=== PATIENT | female | born 1940 | race Caucasian/White ===

== ENCOUNTER 2023-10-10 11:17 | Emergency (ER) | payer MEDICARE ==
[~2023-10-10] VITALS: Ht 157.5 cm; Wt 73.6 kg
[~2023-10-10 11:17] MED LIST: CRANBERRY250 MG PO; DYAZIDE 25 MG-31 CAP PO; ELIQUIS 5MG PO; FLONASE NASAL S16 GM NS; MUCINEX1200 MG PO; PRILOSEC 20MG20 MG PO; PROAIR HFA0.09 MG/AC IH; SYNTHROID0.125 MG/T PO; VITAMIND3 5000 PO
[2023-10-10 11:30] VITALS: TEMP 98.3
[2023-10-10] MEDS ORDERED: VENTOLIN0.09 MG IH (13:02)
[2023-10-10 13:08] VITALS: BP 132/87; PULSE 92
== END 2023-10-10 13:10 | disposition home or self-care (01) ==
LOC: COL.ER 11:17
DX: J90 Pleural effusion, not elsewhere classified (principal)

== ENCOUNTER 2023-10-18 09:14 | Emergency (ER) | payer MEDICARE ==
[~2023-10-18] VITALS: Ht 157.5 cm; Wt 73.6 kg
[~2023-10-18 09:14] MED LIST changes: +VENTOLIN0.09 MG IH
[2023-10-18 09:29] VITALS: TEMP 97.8
[2023-10-18 12:28] VITALS: BP 140/96; PULSE 91
== END 2023-10-18 12:34 | disposition home or self-care (01) ==
LOC: COL.ER 09:14
DX: R06.02 Shortness of breath (principal)

== ENCOUNTER 2023-10-19 06:59 | Outpatient (CLI) | payer MEDICARE ==
[~2023-10-19] VITALS: Ht 154.9 cm; Wt 75.3 kg
[~2023-10-19 06:59] MED LIST changes: +LR 1,000 ML IV SCH
[2023-10-19 07:58] VITALS: BP 143/91; PULSE 89; TEMP 97.8
--- NOTE | 2023-10-19 08:01 | NUR ---
0714 Pt to bay 7 via wheel chair, breathing even and unlabored. Pt is alert and oriented, accompanied today by her daughter. Consent reviewed signed by patient. Call light in reach. Warm blanket provided.
[2023-10-19 09:20] VITALS: BP 732/81; PULSE 81; TEMP 98.6
[2023-10-19 09:35] VITALS: BP 128/78; PULSE 78
[2023-10-19 09:50] VITALS: BP 134/79; PULSE 78
--- NOTE | 2023-10-19 10:49 | NUR ---
[id number]: PT TO RECOVERY BAY 7 FROM [facility] SUITE S/P LEFT THORACENTESIS A&O, PLACED ON MONITOR, VSS ON RA RECEIVED REPORT AND ASSUMED CARE OF PT FROM STIVEN LAM FAMILY AT BEDSIDE PROVIDED FOOD/FLUIDS, TOLERATING WELL DRSG CDI PLAN FOR PT TO HAVE PLURAL CATH PLACED FOR AT HOME DRAINAGE WITH ASPIRA DEVICE - PT ED (LAVEGO/VIDEOS AND TRAINING CATH USED) PT HAS REMAINED A&O, NAD, VSS ON RA, TOLERATING PO, IS WITHOUT SIGNIFICANT COMPLAINT, WITH STEADY GAIT THRU OUT STAY NO IV. D/C INSTRUCTIONS, PRN FOLLOW UP REVIEWED AND HANDED TO PT. ALL QUESTIONS AND CONCERNS ADDRESSED TO PT SATISFACTION. TAKEN TO EXIT VIA W/C WITH ALL BELONGINGS AND PAPERWORK IN HAND, ASSISTED INTO PASSENGER SEAT OF POV. FAMILY TO DRIVE HOME.
[2023-10-19 11:30] VITALS: BP 133/89; PULSE 80
== END 2023-10-19 10:20 | disposition home or self-care (01) ==
LOC: SDCO 06:59
DX: J91.0 Malignant pleural effusion (principal)
CPT/HCPCS: 19804

== ENCOUNTER 2023-10-31 06:40 | Outpatient (CLI) | payer MEDICARE ==
[~2023-10-31] VITALS: Ht 154.9 cm; Wt 76.0 kg
--- NOTE | 2023-10-31 06:51 | NUR ---
PATIENT ADMITTED PER WHEELCHAIR TO BAY 8 AND IS ALERT AND ORIENTED X3. STATES SHE IS HERE TO HAVE HER LEFT LUNG DRAINED. ABLE TO STAND AND TRANSFER WITH STANDBY ASSIST. DYSPNEIC WITH EXERTION. RIGHT LUNGS WITH FEW SCATTERED CRACKLES THAT CLEAR WITH COUGHING. STATES DOES EXPECTORATE CLEAR PHELGM. BREATH SOUNDS ON THE LEFT ABSENT. LAB DRAWN ORDERED BY DR. HAMMOND. DAUGHTER IS WITH THE PATIENT.
[2023-10-31] MEDS ORDERED: B-12 500 MCG PO (07:10)
[2023-10-31] MEDS ORDERED: FOLIC ACID 40400 MCG PO (07:11)
[2023-10-31 07:15] LABS: HEMATOCRIT 43.8 % (37.0-47.0); HEMOGLOBIN 14.6 g/dl (12.5-16.0); MEAN CELL VOLUME 93 fl (80.0-100.0); MEAN CORPUSCULAR HEMOGLOBIN 31 pg (27-31); MEAN CORPUSCULAR HGB CONC 33 g/dl (33.0-37.0); MEAN PLATELET VOLUME 9.4 fl (7.4-10.4); PLATELET COUNT 345 K/mm3 (130-400); RED BLOOD COUNT 4.73 M/mm3 (4.10-5.30); REDCELL DISTRIBUTION WIDTH-CV 13.1 % (11.5-14.5)
[2023-10-31 07:47] LABS: ALBUMIN 3.2 gm/dL (3.4-4.8); BILIRUBIN,TOTAL 0.4 mg/dL (0.2-1.2); CALCIUM 9.7 mg/dL (8.4-10.2); CREATININE, serum 0.93 mg/dL (0.57-1.11); POTASSIUM 3.5 mmol/L (3.5-4.5); TOTAL PROTEIN 6.7 gm/dL (6.2-8.1)
[2023-10-31 08:44] LABS: EOSINOPHIL 1 % (0-4); LYMPHOCYTE 24 % (20.0-51.0); NEUTROPHILS 71 % (42.0-75.2); PLATELET ESTIMATE NORMAL (NORMAL)
[2023-10-31 08:45] VITALS: BP 118/89; PULSE 80; TEMP 97.3
[2023-10-31 09:00] VITALS: BP 125/80; PULSE 80
[2023-10-31 09:20] VITALS: BP 117/93; PULSE 81
--- NOTE | 2023-10-31 14:37 | NUR ---
[id number]: PT TO RECOVERY B[facility] FROM [facility] S/P L THORACENTESIS A&O, PLACED ON MONITOR, VSS ON 2L RECEIVED REPORT AND ASSUMED CARE OF PT FROM STIVEN PIERRE AT BEDSIDE PROVIDED FLUIDS, TOLERATING WELL DR CRUZ IN TO SPEAK WITH PT/FAMILY POST-PROCEDURE 0900 PT TITRATED TO RA, VSS 0905 XR AT BEDSIDE PT HAS REMAINED A&O, NAD, VSS ON RA, TOLERATING PO, IS WITHOUT SIGNIFICANT COMPLAINT, WITH STEADY GAIT THRU OUT STAY D/C INSTRUCTIONS, ANY FOLLOW UP REVIEWED AND HANDED TO PT. ALL QUESTIONS AND CONCERNS ADDRESSED TO PT SATISFACTION. TAKEN TO EXIT VIA W/C WITH ALL BELONGINGS AND PAPERWORK IN HAND, ASSISTED INTO PASSENGER SEAT OF POV. FAMILY TO DRIVE HOME.
== END 2023-10-31 09:15 | disposition home or self-care (01) ==
LOC: SDCO 06:40 → EDSTATUS 08:00 → SDCO 09:15
PROVIDERS: Internal Medicine
DX: J91.0 Malignant pleural effusion (principal); Z85.118 Personal history of other malignant neoplasm of bronchus and lung

== ENCOUNTER → 2023-11-14 | Outpatient (CLI) | payer MEDICARE ==
[~2023-11-14] VITALS: Ht 154.9 cm; Wt 75.2 kg
[~2023-11-14] MED LIST changes: +B-12 250 MCG PO; +B-12 500 MCG PO; +FOLIC ACID 40400 MCG PO; +KEYTRUDA25 MG/ML IV; -LR 1,000 ML IV SCH
[2023-11-14 09:13] VITALS: BP 120/76; PULSE 105; TEMP 97.7
[2023-11-14 10:10] VITALS: BP 127/88; PULSE 90
[2023-11-14 10:51] LABS: HEMATOCRIT 40.4 % (37.0-47.0); HEMOGLOBIN 13.5 g/dl (12.5-16.0); MEAN CELL VOLUME 91 fl (80.0-100.0); MEAN CORPUSCULAR HEMOGLOBIN 30 pg (27-31); MEAN CORPUSCULAR HGB CONC 33 g/dl (33.0-37.0); MEAN PLATELET VOLUME 9.8 fl (7.4-10.4); PLATELET COUNT 170 K/mm3 (130-400); RED BLOOD COUNT 4.46 M/mm3 (4.10-5.30); REDCELL DISTRIBUTION WIDTH-CV 12.3 % (11.5-14.5)
[2023-11-14 11:11] LABS: ALBUMIN 2.6 gm/dL (3.4-4.8); BILIRUBIN,TOTAL 0.4 mg/dL (0.2-1.2); CALCIUM 9.7 mg/dL (8.4-10.2); CREATININE, serum 0.84 mg/dL (0.57-1.11); POTASSIUM 3.7 mmol/L (3.5-4.5); TOTAL PROTEIN 6.5 gm/dL (6.2-8.1)
[2023-11-14 11:30] LABS: EOSINOPHIL 2 % (0-4); LYMPHOCYTE 28 % (20.0-51.0); NEUTROPHILS 56 % (42.0-75.2); PLATELET ESTIMATE NORMAL (NORMAL)
== END ==
LOC: COL.RAD 09:00
PROVIDERS: Internal Medicine
DX: C34.12 Malignant neoplasm of upper lobe, left bronchus or lung (principal); Z98.890 Other specified postprocedural states

== ENCOUNTER → 2023-12-11 | Outpatient (CLI) | payer MEDICARE ==
[~2023-12-11] VITALS: Ht 154.9 cm; Wt 77.0 kg
[2023-12-11 11:30] VITALS: BP 138/87; PULSE 91; TEMP 97.5
[2023-12-11 12:38] VITALS: BP 151/95; PULSE 86
== END ==
LOC: COL.RAD 12-10 11:14
DX: C34.12 Malignant neoplasm of upper lobe, left bronchus or lung (principal); J90 Pleural effusion, not elsewhere classified

== ENCOUNTER 2024-01-11 18:36 | Observation (INO) | payer MEDICARE ==
[~2024-01-11] VITALS: Ht 157.5 cm; Wt 75.0 kg
[2024-01-11] MEDS ORDERED: Morphine 4 MG/ML VIAL IV ONE (19:00)
[2024-01-11] MEDS ORDERED: NS 1,000 ML IV ONE (19:15)
[2024-01-11 19:22] LABS: MEAN CELL VOLUME 98 fl (80.0-100.0); MEAN CORPUSCULAR HGB CONC 33 g/dl (33.0-37.0); MEAN PLATELET VOLUME 9.3 fl (7.4-10.4); PLATELET COUNT 324 K/mm3 (130-400); RED BLOOD COUNT 3.09 M/mm3 (4.10-5.30); REDCELL DISTRIBUTION WIDTH-CV 17.9 % (11.5-14.5)
[2024-01-11 19:24] LABS: HEMATOCRIT 30.2 % (37.0-47.0); HEMOGLOBIN 9.9 g/dl (12.5-16.0); MEAN CORPUSCULAR HEMOGLOBIN 32 pg (27-31)
[2024-01-11 19:49] LABS: BILIRUBIN,TOTAL 0.7 mg/dL (0.2-1.2); CALCIUM 9.1 mg/dL (8.4-10.2); CREATININE, serum 0.76 mg/dL (0.57-1.11); POTASSIUM 3.9 mEq/L (3.5-4.5); TOTAL PROTEIN 6.4 g/dl (6.2-8.1)
[2024-01-11 19:50] LABS: TROPONIN-I 0.034 ng/mL (0.00-0.033)
[2024-01-11 19:53] LABS: BAND 1 % (0-10); BASOPHIL 1 % (0-2); LYMPHOCYTE 15 % (20.0-51.0); NEUTROPHILS 81 % (42.0-75.2)
[2024-01-11 19:54] LABS: ANISOCYTOSIS 2+; HYPOCHROMIA 1+; PLATELET ESTIMATE NORMAL (NORMAL)
[2024-01-11] MEDS ORDERED: Iohexol 300 - 100 ML VIAL IV ONE (20:16)
[2024-01-11] MEDS ORDERED: NS 100 ML IV SCH (20:16)
[2024-01-11] MEDS ORDERED: FOLIC ACID 11 MG/TA1 PO (21:06)
[2024-01-11] MEDS ORDERED: PROAIR RES117 MCG/Ac IH (21:06)
[2024-01-11] MEDS ORDERED: Apixaban 5 MG TAB PO SCH (21:07)
[2024-01-11] MEDS ORDERED: Albuterol 0.083% Neb Soln 2.5 MG/3 ML UD IH PRN (21:15)
[2024-01-11] MEDS ORDERED: Heparin/D5W 250 ML IV SCH (21:30)
[2024-01-11] MEDS ORDERED: Heparin 5,000 UNITS/ML 1 ML VIAL IV PRN (21:30)
[2024-01-11 21:55] VITALS: BP 132/75; PULSE 81; TEMP 97.9
--- NOTE | 2024-01-11 22:00 | NUR ---
PATIENT ARRIVED TO ROOM VIA WHEELCHAIR WITH GRANDSON ACCOMPANYING HER. SHE IS REQUESTING THAT HER GRANDDAUGHTER BE ABLE TO STAY THE NIGHT IN HER ROOM WITH HER, RN STATED SHE WOULD HAVE TO CHECK WITH ENAMEL SPRAYER PRIOR TO GIVING APPROVAL. CURRENTLY DENIES ANY CHEST PAIN, SHORTNESS OF BREATH, OR NAUSEA AND IS REQUESTING SOMETHING TO EAT. ORIENTED HER TO ROOM AND EDUCATED BUSHEL WORKER LIGHT USE BED IS LOCKED AND IN LOW POSITION.
[2024-01-11 22:24] VITALS: BP_SYST 132
[2024-01-11 22:38] LABS: INR 1.5 (0.8-3.0); PROTHROMBIN TIME 15.7 SECONDS (9.7-12.8)
[2024-01-11 22:43] VITALS: BP 122/76; PULSE 80; TEMP 98.1
[2024-01-12 01:00] VITALS: BP_SYST 122
[2024-01-12] MEDS ORDERED: Morphine 4 MG/ML VIAL IV PRN (02:45)
[2024-01-12 02:58] VITALS: BP 108/67; PULSE 76; TEMP 97.8
[2024-01-12] MEDS ORDERED: Acetaminophen 325 MG TAB PO PRN (04:30)
[2024-01-12 05:32] VITALS: BP_SYST 108
[2024-01-12 06:56] LABS: MEAN CELL VOLUME 97 fl (80.0-100.0); MEAN CORPUSCULAR HGB CONC 33 g/dl (33.0-37.0); MEAN PLATELET VOLUME 9.6 fl (7.4-10.4); PLATELET COUNT 288 K/mm3 (130-400); RED BLOOD COUNT 2.66 M/mm3 (4.10-5.30); REDCELL DISTRIBUTION WIDTH-CV 17.7 % (11.5-14.5)
[2024-01-12] MEDS ORDERED: Omeprazole 20 MG **** subs to Pantoprazole 40 MG PO SCH (07:00)
[2024-01-12 07:20] LABS: CALCIUM 8.4 mg/dL (8.4-10.2); CREATININE, serum 0.67 mg/dL (0.57-1.11); POTASSIUM 3.7 mEq/L (3.5-4.5)
[2024-01-12 07:39] LABS: HEMATOCRIT 25.8 % (37.0-47.0); HEMOGLOBIN 8.4 g/dl (12.5-16.0); MEAN CORPUSCULAR HEMOGLOBIN 32 pg (27-31)
--- NOTE | 2024-01-12 08:00 | NUR ---
Patient sitting up in bed, A&Ox4. VSS. Granddaughter at the bedside. IV intact, old drainage. Denies pain and discomfort. Call light within reach
[2024-01-12 08:09] VITALS: BP 112/72; PULSE 90; TEMP 98.5
[2024-01-12 08:19] VITALS: BP_SYST 112
[2024-01-12 08:30] LABS: ANISOCYTOSIS 2+; BAND 3 % (0-10); HYPOCHROMIA 1+; LYMPHOCYTE 16 % (20.0-51.0); NEUTROPHILS 80 % (42.0-75.2); OVALOCYTES 1+; PLATELET ESTIMATE NORMAL (NORMAL)
[2024-01-12] MEDS ORDERED: Cyanocobalamin (Vit B-12) 1,000 MCG TAB PO SCH (09:00)
[2024-01-12] MEDS ORDERED: Folic Acid 1 MG TAB PO SCH (09:00)
[2024-01-12] MEDS ORDERED: Fluticasone Nasal 50 MCG/Spray 16 GM BOTTLE NS SCH (09:00)
[2024-01-12] MEDS ORDERED: Cholecalciferol (Vit D3) 5000 Units Capsule PO SCH (09:00)
[2024-01-12 11:39] VITALS: BP 126/82; PULSE 83; TEMP 98.1
--- NOTE | 2024-01-12 11:50 | NUR ---
Discharge paperwork reviewed with the patient and family at the bedside. Patient verbalized an understanding to follow doctors orders. IV removed, tip intact. Gauze and coban applied. Patient getting dressed. No further needs expressed. Call light within reach
--- NOTE | 2024-01-12 12:00 | NUR ---
Patient taken by wheelchair to awaiting vehicle with personal belongings and discharge paperwork. No further needs expressed
--- NOTE | 2024-01-12 12:35 | NUR ---
Data: Patient and Daughter accepted Director Of Social Work services offered during Director Of Social Work rounds. Assessment: Patient is grieving the loss of her two weeks ago. Plan of Care: Director Of Social Work provided supportive listening during life review. Director Of Social Work prayed for all of the people and items discussed. Doctor was arriving to speak with Patient as Director Of Social Work was leaving.
== END 2024-01-12 12:00 | disposition home or self-care (01) ==
LOC: COL.ER 18:36 → MEDICAL 20:44
PROVIDERS: Nurse Practitioner; Nurse Practitioner Family; ADMIT Internal Medicine
DX: R07.89 Other chest pain (principal); R10.13 Epigastric pain; C34.90 Malignant neoplasm of unspecified part of unspecified bronchus or lung; D64.9 Anemia, unspecified; I21.4 Non-ST elevation (NSTEMI) myocardial infarction; I10 Essential (primary) hypertension; E03.9 Hypothyroidism, unspecified; K21.9 Gastro-esophageal reflux disease without esophagitis; E87.1 Hypo-osmolality and hyponatremia; Z86.711 Personal history of pulmonary embolism; Z79.01 Long term (current) use of anticoagulants; Z79.899 Other long term (current) drug therapy; Z79.890 Hormone replacement therapy
CPT/HCPCS: G0378; J1644; J2270; J7030; Q9967